=== PATIENT | female | born 1970 | race Caucasian/White ===

== ENCOUNTER → 2025-01-12 09:17 | Outpatient (CLI) | payer OTHER, BC, SELFPAY ==
[2025-01-12 10:05] LABS: Influenza A - CEPHEID Flu A NEGATIVE (NEGATIVE); Influenza B - CEPHEID Flu B NEGATIVE (NEGATIVE)
[2025-01-12 12:17] LABS: COVID-19 CEPHEID 4-PLEX PCR Negative (Negative)
== END ==
PROVIDERS: Visit Provider Nurse Practitioner Family
DX: R05.1 Acute cough (principal)
CPT/HCPCS: 87637